=== PATIENT | female | born 1995 | race Caucasian/White ===

== ENCOUNTER 2024-10-11 22:02 | Inpatient (IN) | payer OTHER ==
[~2024-10-11] VITALS: Ht 172.7 cm; Wt 81.6 kg
[2024-10-11 23:22] LABS: CARBON DIOXIDE 21 mEq/L (21-32); CHLORIDE 111 mEq/L (98-107); POTASSIUM 3.9 mEq/L (3.5-5.1); SODIUM 146 mEq/L (136-145)
[2024-10-11 23:23] LABS: CALCIUM 10.1 mg/dL (8.7-10.4)
[2024-10-11 23:27] LABS: GLUCOSE 98 mg/dL (70-105)
[2024-10-11 23:28] LABS: UREA NITROGEN BLOOD 17 mg/dL (9-23)
[2024-10-11 23:29] LABS: ALANINE AMINOTRANSFERASE 22 IU/L (10-49); ASPARTATE AMINOTRANSFERASE 33 IU/L (<34); CREATINE KINASE 281 IU/L (34-145)
[2024-10-11 23:30] LABS: BILIRUBIN DIRECT < 0.1 mg/dL (<=3.0); BILIRUBIN TOTAL 0.4 mg/dL (0.1-1.0)
[2024-10-11 23:37] LABS: BASOPHILS % 0.1 % (0.0-2.0); EOSINOPHILS % 0.3 % (0.0-5.0); HEMATOCRIT. 44.1 % (36.0-48.0); HEMOGLOBIN. 14.6 g/dL (12.0-16.0); LYMPHOCYTES % 9.5 % (20.0-50.0); MEAN CORPUSCULAR HEMOGLOBIN 29.5 pg (28.0-32.0); MEAN CORPUSCULAR VOLUME 89.1 fL (81.0-99.0); MEAN PLATELET VOLUME 8.5 fl (7.4-10.4); MONOCYTES % 5.6 % (2.0-8.0); NEUTROPHILS % 84.5 % (40.0-76.0); PLATELET 300 x1000/uL (130-400); RED BLOOD CELL COUNT 4.94 mill/uL (4.2-5.4); RED CELL DISTRIBUTION WIDTH 13.4 % (11.6-14.6); WHITE BLOOD COUNT 20.1 x1000/uL (4.5-11.0)
[2024-10-11 23:39] LABS: TROPONIN I HIGH SENSITIVITY 583 ng/L (3.0-34)
[2024-10-11] MEDS: ACETAMINOPHEN 325MG TABLET PO STA (23:47)
[2024-10-11] MEDS: ONDANSETRON HCL 4MG/2ML INJ IV ONE (23:47)
[2024-10-11] MEDS: SODIUM CHLORIDE 0.9% 1,000 ML IV ONE (23:48)
[2024-10-11 23:50] LABS: HCG SCREEN NEGATIVE
[2024-10-12] MEDS: SODIUM CHLORIDE 0.9% 1,000 ML IV ONE (00:41)
[2024-10-12 03:00] VITALS: BP 98/47; PULSE 62; RESP 18; TEMP 37.1
[2024-10-12] MEDS ORDERED: MORPHINE SULFATE 2 MG/ML INJ (NOT FOR IM USE) IV PRN (03:45)
[2024-10-12] MEDS ORDERED: NITROGLYCERIN 0.4MG TABLET SL SL PRN (03:45)
[2024-10-12] MEDS ORDERED: ONDANSETRON HCL 4MG/2ML INJ IV PRN (03:45)
[2024-10-12] MEDS ORDERED: ACETAMINOPHEN 325MG TABLET PO PRN ×2 (03:45)
[2024-10-12] MEDS ORDERED: MAGNESIUM/ALUMINUM HYDROXIDE/SIMETHICONE 30ML UDC PO PRN (03:45)
[2024-10-12 04:00] VITALS: BP 98/47; PULSE 62; RESP 20; TEMP 36.9; O2SAT 98
[2024-10-12] MEDS: LACTATED RINGERS 1,000 ML IV SCH (05:23)
[2024-10-12] MEDS: ONDANSETRON HCL 4MG/2ML INJ IV ONE (05:34)
[2024-10-12] MEDS: ACETAMINOPHEN WITH CODEINE 300/30MG TABLET PO PRN (05:35)
[2024-10-12 07:21] LABS: POTASSIUM 3.6 mEq/L (3.5-5.1)
[2024-10-12 07:22] LABS: CALCIUM 8.3 mg/dL (8.7-10.4)
[2024-10-12 07:27] LABS: CREATININE 1.1 mg/dL (0.6-1.0)
[2024-10-12 08:00] VITALS: BP 101/52; PULSE 59; RESP 20; TEMP 36.8; O2SAT 100
[2024-10-12] MEDS: ENOXAPARIN 40MG/0.4ML SYR SUBCUT SCH (08:51)
[2024-10-12] MEDS: ASPIRIN 81MG TABLET PO SCH (09:00)
[2024-10-12 09:28] LABS: CREATINE KINASE 1666 IU/L (34-145)
[2024-10-12 09:37] LABS: TROPONIN I HIGH SENSITIVITY 685 ng/L (3.0-34)
[2024-10-12 09:48] LABS: T4 FREE 1.23 ng/dL (0.89-1.76)
[2024-10-12 09:49] LABS: THYROID STIMULATING HORMONE 0.65 uIU/mL (0.55-4.78)
[2024-10-12] MEDS: FAMOTIDINE 20MG/2ML VIAL IV SCH (10:30)
[2024-10-12] MEDS: TRAMADOL 50MG TABLET PO SCH (11:50)
[2024-10-12 12:00] VITALS: BP 103/52; PULSE 62; RESP 20; TEMP 36.7; O2SAT 100
[2024-10-12] MEDS ORDERED: SODIUM CHLORIDE 0.9% 1,000 ML IV SCH (12:30)
[2024-10-12] MEDS: BACLOFEN 10MG TABLET PO SCH (13:17)
[2024-10-12 14:19] LABS: CREATINE KINASE 2222 IU/L (34-145)
[2024-10-12 14:35] LABS: TROPONIN I HIGH SENSITIVITY 384 ng/L (3.0-34)
[2024-10-12 16:00] VITALS: BP 108/63; PULSE 57; RESP 19; TEMP 36.7; O2SAT 99
[2024-10-12 16:27] LABS: CREATINE KINASE MB FRACTION 61.6 ng/mL (0.5-3.6)
[2024-10-12 18:43] LABS: CREATINE KINASE 2616 IU/L (34-145)
[2024-10-12 18:55] LABS: TROPONIN I HIGH SENSITIVITY 272 ng/L (3.0-34)
[2024-10-12 22:38] LABS: CREATINE KINASE MB FRACTION 69.8 ng/mL (0.5-3.6)
[2024-10-13 06:39] LABS: CREATINE KINASE MB FRACTION 37.1 ng/mL (0.5-3.6)
[2024-10-13 06:42] LABS: BASOPHILS % 0.3 % (0.0-2.0); EOSINOPHILS % 0.1 % (0.0-5.0); HEMATOCRIT. 36.8 % (36.0-48.0); HEMOGLOBIN. 12.4 g/dL (12.0-16.0); MEAN CORPUSCULAR HEMOGLOBIN 29.8 pg (28.0-32.0); MEAN CORPUSCULAR HGB CONC 33.7 g/dL (31.0-37.0); MEAN CORPUSCULAR VOLUME 88.3 fL (81.0-99.0); MEAN PLATELET VOLUME 9.3 fl (7.4-10.4); MONOCYTES % 6.1 % (2.0-8.0); NEUTROPHILS % 66.5 % (40.0-76.0); PLATELET 169 x1000/uL (130-400); RED BLOOD CELL COUNT 4.16 mill/uL (4.2-5.4); RED CELL DISTRIBUTION WIDTH 13.6 % (11.6-14.6); WHITE BLOOD COUNT 10.2 x1000/uL (4.5-11.0)
[2024-10-13 08:00] VITALS: BP 111/61; PULSE 60; RESP 20; TEMP 36.3; O2SAT 100
[2024-10-13 08:11] LABS: CHLORIDE 108 mEq/L (98-107); POTASSIUM 4.5 mEq/L (3.5-5.1); SODIUM 139 mEq/L (136-145)
[2024-10-13 08:12] LABS: CARBON DIOXIDE 22 mEq/L (21-32)
[2024-10-13 08:17] LABS: CREATININE 0.9 mg/dL (0.6-1.0); GLUCOSE 83 mg/dL (70-105); UREA NITROGEN BLOOD 12 mg/dL (9-23)
[2024-10-13 08:19] LABS: PHOSPHORUS 2.8 mg/dL (2.5-4.9)
[2024-10-13] MEDS ORDERED: METOPROLOL TARTRATE 5MG/5ML VIAL IV PRN (08:30)
[2024-10-13] MEDS: SODIUM CHLORIDE 0.9% 1,000 ML IV SCH (08:52)
[2024-10-13 12:00] VITALS: BP 110/64; PULSE 54; RESP 18; TEMP 36.4; O2SAT 100
[2024-10-13] MEDS: NITROGLYCERIN SPRAY/4.9GM CAN TL ONE (12:40)
[2024-10-13] MEDS ORDERED: IOHEXOL-350 100 ML BOTTLE ONE (13:41)
[2024-10-13 16:00] VITALS: BP 106/66; PULSE 59; RESP 20; TEMP 36.7; O2SAT 97
[2024-10-13 16:04] VITALS: BP 106/67; PULSE 61; TEMP 98.4; O2SAT 99
== END 2024-10-13 16:41 | disposition home or self-care (01) | DRG 640 ==
LOC: ER 22:02 → 7WST 10-12 01:11 → EDBEDREQ 10-12 01:28 → ENRESERV 10-12 02:01
PROVIDERS: ADMIT Internal Medicine; ATTEND Internal Medicine
DX: E86.0 Dehydration (principal); I21.4 Non-ST elevation (NSTEMI) myocardial infarction; N17.9 Acute kidney failure, unspecified; M62.82 Rhabdomyolysis; E87.0 Hyperosmolality and hypernatremia; E87.20 Acidosis, unspecified; T67.5XXA Heat exhaustion, unspecified, initial encounter; M62.830 Muscle spasm of back; I95.9 Hypotension, unspecified; E83.41 Hypermagnesemia; D72.829 Elevated white blood cell count, unspecified; S80.211A Abrasion, right knee, initial encounter; S80.212A Abrasion, left knee, initial encounter; W18.39XA Other fall on same level, initial encounter; X30.XXXA Exposure to excessive natural heat, initial encounter; Y93.89 Activity, other specified; Y92.89 Other specified places as the place of occurrence of the external cause; Y99.8 Other external cause status; Z82.49 Family history of ischemic heart disease and other diseases of the circulatory system; Z83.3 Family history of diabetes mellitus
CPT/HCPCS: 36415; 71045; 73560; 75571; 76770; 80048; 80061; 80076; 82550; 82553; 83036; 83735; 83880; 84100; 84439; 84443; 84484; 84703; 85025; 85379; 93005; 93306; 93880; 99285; J1308; J1650; J2405; J7030; J7120; Q9967